=== PATIENT | male | born 1955 | race Caucasian/White ===

== ENCOUNTER 2025-05-30 17:35 | Inpatient (IN) | payer MEDICARE, SELFPAY ==
[2025-05-30] VITALS (8 sets, daily range): BP systolic 115–155; BP diastolic 68–88; BMI 26.1
--- NOTE | 2025-05-30 08:45 | ED.GENMED ---
History of Present Illness
<Fiorella Blancas PA-C - Last Filed: 06/01/25 06:31>
General
Chief Complaint: Abdominal Symptoms
Source: patient
Exam Limitations: none
Time Seen by Provider: 05/30/25 08:06
Nursing documentation reviewed up to this point in time: agreed with
History of Present Illness
History of Present Illness:
see MDM
Phy Exam
<Fiorella Blancas PA-C - Last Filed: 06/01/25 06:31>
Physical Exam
Physical Exam:
ee MDM
Course
<Fiorella Blancas PA-C - Last Filed: 06/01/25 06:31>
Orders/Labs/Results
Orders:
Orders
05/30/25 08:44
0.9% Sodium Chloride 1000 ml [Nss] 1,000 ml IV BOLUS
Ketorolac [Toradol] 30 mg IV NOW STA
US Abdomen Complete/Upper Urgent
Comment:
Reason For Exam: upper abd pain
05/30/25 08:51
Complete Blood Count/With Diff Urgent
Comprehensive Metabolic Panel Urgent
Lipase Urgent
05/30/25 11:52
CT Abd/Pel (IV only)-DH only Urgent
Comment:
Reason For Exam: upper abd pain, bloating
05/30/25 11:55
HYDROmorphone [Dilaudid] 0.5 mg IV NOW STA
05/30/25 Dinner
NPO
Allow oral meds: Yes
Allow clear liquids: No
NPO with Ice Chips: Yes
05/30/25 15:31
0.9% Sodium Chloride 1000 ml [Nss] 1,000 ml IV BOLUS
05/30/25 15:36
Lactic Acid Urgent
05/30/25 16:23
Gastrointestinal Tubes As Directed
Type: [place] sumspike
To suction?: Yes
Type of suction: Low intermittent
Directions to clamp NG tube: clamp for ambulation/activity
Irrigate tube?: Yes
Irrigant: Tap Water
Frequency: Q4H
Amount in mls: 30
Irrigation Directions: Irrigate Q4H and PRN
Comment: 16fr radharosalba mayela
05/30/25 16:36
Admit Patient As Directed
Co-Sign Provider:
Level of Care: Inpatient admission
Assign to:: Medical/Surgical
Physician / Group: General surgery/pellini
Diagnosis: SBO
Reason for Hospitalization: SBO
Expected length of stay greater than two midnights?: Yes
ELOS- Estimated Length of Stay in days: 3
I certify the patient meets the requirements for IP care: Yes
Code Status As Directed
Resuscitation Status: Full Code
HYDROmorphone [Dilaudid] 0.5 mg IV Q3HPRN PRN
HYDROmorphone [Dilaudid] 1 mg IV Q3HPRN PRN
Ketorolac [Toradol] 10 mg IV Q6HPRN PRN
Ondansetron Injectable [Zofran] 4 mg IV Q6HPRN PRN
Activity As Directed
Activity Level: Out of Bed-Early Mobility
Intake/ Output As Directed
Frequency: Per unit guidelines
Vital Signs As Directed
Frequency: Per unit guidelines
PRN Pain Medication Management As Directed
May give lesser potent ordered pain med per pt: Yes
preference::
Protocol:: Medication orders for pain may be administered in a
manner that supports deferring to patient preference
when the pt is:
- Requesting an ordered lesser potent pain medication.
Least to most potent pain medications are defined
as: acetaminophen < NSAID < tramadol < opioids
(morphine, oxycodone, hydromorphone).
- Requesting a lesser dose of the same medication IF
ORDERED.
- Requesting a less intrusive route of administration
if both routes are prescribed by the provider (PO <
IV).
05/30/25 16:37
Pneumatic Compression Sleeves As Directed
Type: Knee high
DX Deep Vein Thrombosis Video Routine
05/30/25 16:39
Phenol 1.4% Gaston [Chloraseptic/Sore Throat Gaston] See Dose Instructions PO Q2HPRN PRN
05/30/25 16:42
CR Chest Portable - 1 View Urgent
Comment:
Reason For Exam: ngt
Reason Study Needs to be Portable: Unable to Transport
05/30/25 16:45
Acetaminophen 1000MG/100Ml [Ofirmev] 1,000 mg in 100 ml IV Q6H
Acetaminophen IV Indication:: Ileus/Delayed Bowel Func.
05/30/25 17:00
Dextrose 5%/0.45%Sodchl 1000ML [D5/0.45%NaCl] 1,000 ml IV 120 mls/hr
05/30/25 18:00
Enoxaparin Sodium [Lovenox] 40 mg SC QPM
05/31/25 05:59
Basic Metabolic Panel IN AM
Complete Blood Count/No Diff IN AM
Abnormal Lab Results
05/30/25
08:51
Absolute Neuts (auto) 7.2 H 10^3/uL
(1.4-6.5)
Absolute Lymphs (auto) 0.9 L 10^3/uL
(1.2-3.4)
Neutrophils % 81.6 H %
(42.2-75.2)
Lymphocytes % 10.5 L %
(20.5-51.1)
BUN 30 H mg/dl
(9-20)
Glucose 111 H mg/dl
(70-99)
Calcium 10.6 H mg/dl
(8.4-10.2)
05/30/25 08:51
05/30/25 08:51
Vital Signs
Initial and Last Documented VS:
Initial Vital Signs
Temp Pulse Resp BP Pulse Ox
98.6 F 64 17 148/83 97
05/30/25 07:38 05/30/25 07:38 05/30/25 07:38 05/30/25 07:38 05/30/25 07:38
Last Documented Vital Signs
Temp Pulse Resp BP Pulse Ox
98 F 60 16 154/92 97
06/02/25 07:58 06/02/25 07:58 06/02/25 07:58 06/02/25 07:58 06/02/25 07:58
<Toni Rosado, - Last Filed: 06/03/25 01:37>
Orders/Labs/Results
Orders:
Orders
05/30/25 08:44
0.9% Sodium Chloride 1000 ml [Nss] 1,000 ml IV BOLUS
Ketorolac [Toradol] 30 mg IV NOW STA
US Abdomen Complete/Upper Urgent
Comment:
Reason For Exam: upper abd pain
05/30/25 08:51
Complete Blood Count/With Diff Urgent
Comprehensive Metabolic Panel Urgent
Lipase Urgent
05/30/25 11:52
CT Abd/Pel (IV only)-[facility] only Urgent
Comment:
Reason For Exam: upper abd pain, bloating
05/30/25 11:55
HYDROmorphone [Dilaudid] 0.5 mg IV NOW STA
05/30/25 Dinner
NPO
Allow oral meds: Yes
Allow clear liquids: No
NPO with Ice Chips: Yes
05/30/25 15:31
0.9% Sodium Chloride 1000 ml [Nss] 1,000 ml IV BOLUS
05/30/25 15:36
Lactic Acid Urgent
05/30/25 16:23
Gastrointestinal Tubes As Directed
Type: Kevin pedro
To suction?: Yes
Type of suction: Low intermittent
Directions to clamp NG tube: clamp for ambulation/activity
Irrigate tube?: Yes
Irrigant: Tap Water
Frequency: Q4H
Amount in mls: 30
Irrigation Directions: Irrigate Q4H and PRN
Comment: 16fr kevin pedro
05/30/25 16:36
Admit Patient As Directed
Co-Sign Provider:
Level of Care: Inpatient admission
Assign to:: Medical/Surgical
Physician / Group: General surgery/pellini
Diagnosis: SBO
Reason for Hospitalization: SBO
Expected length of stay greater than two midnights?: Yes
ELOS- Estimated Length of Stay in days: 3
I certify the patient meets the requirements for IP care: Yes
Code Status As Directed
Resuscitation Status: Full Code
HYDROmorphone [Dilaudid] 0.5 mg IV Q3HPRN PRN
HYDROmorphone [Dilaudid] 1 mg IV Q3HPRN PRN
Ketorolac [Toradol] 10 mg IV Q6HPRN PRN
Ondansetron Injectable [Zofran] 4 mg IV Q6HPRN PRN
Activity As Directed
Activity Level: Out of Bed-Early Mobility
Intake/ Output As Directed
Frequency: Per unit guidelines
Vital Signs As Directed
Frequency: Per unit guidelines
PRN Pain Medication Management As Directed
May give lesser potent ordered pain med per pt: Yes
preference::
Protocol:: Medication orders for pain may be administered in a
manner that supports deferring to patient preference
when the pt is:
- Requesting an ordered lesser potent pain medication.
Least to most potent pain medications are defined
as: acetaminophen < NSAID < tramadol < opioids
(morphine, oxycodone, hydromorphone).
- Requesting a lesser dose of the same medication IF
ORDERED.
- Requesting a less intrusive route of administration
if both routes are prescribed by the provider (PO <
IV).
05/30/25 16:37
Pneumatic Compression Sleeves As Directed
Type: Knee high
DX Deep Vein Thrombosis Video Routine
05/30/25 16:39
Phenol 1.4% Gaston [Chloraseptic/Sore Throat Gaston] See Dose Instructions PO Q2HPRN PRN
05/30/25 16:42
CR Chest Portable - 1 View Urgent
Comment:
Reason For Exam: ngt
Reason Study Needs to be Portable: Unable to Transport
05/30/25 16:45
Acetaminophen 1000MG/100Ml [Ofirmev] 1,000 mg in 100 ml IV Q6H
Acetaminophen IV Indication:: Ileus/Delayed Bowel Func.
05/30/25 17:00
Dextrose 5%/0.45%Sodchl 1000ML [D5/0.45%NaCl] 1,000 ml IV 120 mls/hr
05/30/25 18:00
Enoxaparin Sodium [Lovenox] 40 mg SC QPM
05/31/25 05:59
Basic Metabolic Panel IN AM
Complete Blood Count/No Diff IN AM
Abnormal Lab Results
05/30/25
08:51
Absolute Neuts (auto) 7.2 H 10^3/uL
(1.4-6.5)
Absolute Lymphs (auto) 0.9 L 10^3/uL
(1.2-3.4)
Neutrophils % 81.6 H %
(42.2-75.2)
Lymphocytes % 10.5 L %
(20.5-51.1)
BUN 30 H mg/dl
(9-20)
Glucose 111 H mg/dl
(70-99)
Calcium 10.6 H mg/dl
(8.4-10.2)
05/30/25 08:51
05/30/25 08:51
Vital Signs
Initial and Last Documented VS:
Initial Vital Signs
Temp Pulse Resp BP Pulse Ox
98.6 F 64 17 148/83 97
05/30/25 07:38 05/30/25 07:38 05/30/25 07:38 05/30/25 07:38 05/30/25 07:38
Last Documented Vital Signs
Temp Pulse Resp BP Pulse Ox
98 F 60 16 154/92 97
06/02/25 07:58 06/02/25 07:58 06/02/25 07:58 06/02/25 07:58 06/02/25 07:58
<Fiorella Blancas PA-C - Last Filed: 06/01/25 06:31>
MDM/Problems Addressed
Differential Diagnosis Includes:
see MDM
MDM/Problems Addressed:
Note:
CHIEF COMPLAINT(S)
Abdominal pain.
HISTORY OF PRESENT ILLNESS
The patient is a 69-year-old male who presented with abdominal pain located in the middle of the abdomen. The pain commenced at approximately 1:00 AM, waking the patient from sleep. It is described as occurring in waves, with baseline discomfort at
a level 6 on a pain scale and increasing to an 8 during the waves. The patient notes that the pain has been persistent and appears to be worsening. He reports that positioning affects the pain, mentioning that lying on his side seems to exacerbate
it. His last bowel movement was on morning and he denies any signs of constipation. The patient has a history of occasional acid reflux managed with qpbj-orn-zfinxwi antacids but has not undergone an endoscopy. Dinner consisted of a diverse
selection of foods including sushi, crab quads, and beef. He reports no significant nausea, vomiting, or fever, although he does experience occasional burping and marginal nausea. The patient denies any prior episodes of similar pain, reports no
alcohol consumption, and when taking a deep breath, experiences discomfort.
PAST MEDICAL HISTORY
History of acid reflux, managed with [id number]-acnxkgu antacids.
PHYSICAL EXAM
GENERAL: Alert , in no apparent distress
EYE: pupils equal and reactive
NECK: Supple
ENT: o/p clr, mmm.
CARDIAC: Regular rate and rhythm .
LUNGS: Clear breath sounds bilaterally, no acute respiratory distress, no wheezes/rales/rhonchi
ABDOMEN: Soft, mildly distended especially the upper abdomen with right upper quadrant tenderness, negative Santana sign, no r/g, no cvat, normal bowel sounds
NEUROLOGICAL: Alert and oriented, no focal neuro deficits
SKIN: Warm and dry, skin intact.
MUSCULOSKELETAL: No edema, well perfused.
PSYCH: Normal and appropriate interaction.
- Nursing notes reviewed and vital signs reviewed.
PLAN
- Administer Ketorolac as an anti-inflammatory for pain management. If ineffective, consider escalation to morphine.
- Order blood work to assess liver markers.
- Schedule an abdominal ultrasound to evaluate gallbladder, liver, kidney, aorta, and pancreas, focusing on possible gallbladder issues including gallstones.
- Consider a computed tomography scan if ultrasound results are inconclusive.
- Initiate intravenous hydration.
- Advise the patient to refrain from eating or drinking until further assessment is complete.
DIFFERENTIAL DIAGNOSIS
The Differential Diagnosis includes, in no particular order and is not limited to:
1. Biliary colic
2. Cholecystitis
3. Pancreatitis
4. Gastritis
5. Peptic ulcer disease
6. Small bowel obstruction
7. Large bowel obstruction
8. Enteritis
9. Hepatitis
10. Gastroesophageal reflux disease (GERD)
CARE-UPDATE
05/30/25 - 13:56
Upper abdominal pain waxing and waning since 1 AM, woke patient from sleep, mild abdominal distention without vomiting but some mild nausea. No previous abdominal surgeries. Patient seemed to have tenderness in his right upper quadrant with a
negative Santana sign but given the location I started with an ultrasound. The screening labs were unremarkable. Patient's ultrasound was negative and I proceeded to order a CT scan
Patient experienced delays in scheduling due to an influx of other cases, including priority strokes, which impacted the timing of their study. Efforts are being made to expedite the process. Patient informed that the scan itself is short,
approximately 3-5 minutes, with results typically reviewed by a radiologist within the hour.
CT showed high-grade small bowel obstruction, patient has a normal lactic acid. His pain was controlled with IV pain medication. He was given IV fluids and I consulted general surgery who recommended NG tube. I did see that the tube was not fully
in and had them advance it 2 cm after x-ray which did successfully show that the patient's tube was in place given the output in the NG tube canister. Patient will be admitted to the hospitalist
<Fiorella Blancas PA-C - Last Filed: 06/01/25 06:31>
*Pulse Oximetry
SaO2: 97
Oxygen Mode of Delivery: Room air
Patient hypoxic: no (96)
*Critical Care Note
Total Time (30-74mins, 75-104mins- exclusive of procedures): Not Applicable
ED Attending Note
<Fiorella Blancas PA-C - Last Filed: 06/01/25 06:31>
-
Portions of this chart may have been created with voice recognition software.� Occasional wrong word or��sound alike� substitutions may have occurred due to the inherent limitations of voice recognition software.
<Toni Rosado DO - Last Filed: 06/03/25 01:37>
ED Attending Note
Patient seen and examined by attending physician: Yes
I performed the substantive portion of visit, reviewed & personally made and approve the management plan that is documented in note by myself or BRITTANY.: Yes
ED Attending Note:
Documentation delayed. 61-year-old male presents with abdominal distention and discomfort. Found to have small bowel obstruction. Surgery consult. Admit
Discharge Plan
Departure
Patient Disposition: Admit
Date of Disposition: 05/30/25
Time of Disposition: 15:41
Admit to: Med/Surg
Presentation/result/management discussed w/ accepting MD/DO: Hospitalist
Condition: Fair
Covid-19: Negative COVID-19
Discharge Problem:
SBO (small bowel obstruction)
Interventions
Interventions:
*Risk Screen - Suicide Last Done: 05/30/25 07:40
*General Assessment Last Done: 05/30/25 07:40
*Neglect/Abuse Screening Last Done: 05/30/25 07:40
*ED- Fall Risk Assessment Last Done: 05/30/25 08:18
*ED COVID-19 Vaccine History Last Done: 05/30/25 07:40
*Nursing Disposition Last Done: 05/30/25 19:15
FM-Gedjmp-Yiqrgacsvl Assessment Last Done: 05/30/25 08:18
Discharge Date and Time
Discharge Date/Time: 05/30/25 19:15
[2025-05-30] MEDS: NSS 1000 IV ×2 (08:52→15:35)
[2025-05-30] MEDS: TORADOL 30 MG IV (08:52)
[2025-05-30 09:01] LABS: Hematocrit 44.2 % (39.0-52.0); Hemoglobin 15.1 g/dL (13.0-18.0); Mean Corp Hgb Conc. 34.2 g/dL (33.0-37.0); Mean Corpuscular Volume 83.2 fL (80.0-94.0); Nucleated Red Blood Cells % 0 % (-); Platelet Count 172 10^3/uL (130-400); Red Cell Dist. Width 13.0 % (11.5-14.5)
[2025-05-30 09:38] LABS: ALT (SGPT) 33 U/L (0-50); AST (SGOT) 39 U/L (17-59); Albumin 4.5 g/dl (3.5-5.0); Alkaline Phosphatase 43 U/L (38-126); Blood Urea Nitrogen 30 mg/dl (9-20); Calcium 10.6 mg/dl (8.4-10.2); Carbon Dioxide 28 mmol/L (22-30); Chloride 107 mmol/L (98-107); Estimated Creatinine Clearance 79 ml/min; Glucose 111 mg/dl (70-99); Lipase 46 U/L (23-300); Potassium 4.7 mmol/L (3.5-5.1); Sodium 140 mmol/L (135-145); Total Protein 7.0 g/dl (6.3-8.2); eGFR > 60.00
[2025-05-30] MEDS: DILAUDID 0.5 MG IV (11:58)
--- NOTE | 2025-05-30 16:23 | HPS.HSE ---
Family Physician
-
Family Physician: Tutu Peterson
Chief Complaint
-
Abdominal pain
History of Present Illness
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 As the day has progressed, his pain has worsened with cramping and nausea. He
denies vomiting. He has not passed flatus since yesterday and notes that he has been burping. 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
excessive amount. He went to bed as usual and was awakened with sleep early this morning. On exam, his abdomen is tensely distended with mild generalized tenderness. No rebound, rigidity or guarding. He denies prior bowel obstructions in the past.
Medical History
Past Medical History
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
Past Surgical History: Reports Orthopedic (left meniscus) and Urological (right orchiectomy)
Social History
Tobacco: Non-smoker
Alcohol: Occasional
Personal:
Living: With Family
Family History
Family History: Not pertinent
Allergies / Home Medications
Allergies reflects when Allergies were last updated in [facility].
Home Medications with original date entered in [facility] [employer]
Allergy/Medication List:
Patient Allergies
Allergy/AdvReac Type Severity Reaction Status Date / Time
No Known Allergies Allergy Unverified 05/30/25 07:39
Review of Systems
-
History Source: Patient and Family
A 12 point ROS was completed and negative except as noted: Yes
Physical Exam
Vital Signs
Vital Signs
Temp Pulse Resp BP Pulse Ox
98.6 F 55 16 140/79 98
05/30/25 07:38 05/30/25 16:02 05/30/25 16:02 05/30/25 16:00 05/30/25 16:00
Physical Exam
General: Well Developed and Well Nourished
HEENT: Moist mucous membranes
Respiratory: Non Labored Respirations
GI: Soft, Tender (mild and generalized without rebound, rigidity or guarding) and Distended (tensely)
Skin: Warm and Dry
Neuro: Awake, Alert and AO x 3
Psych: Calm
Laboratory Results
-
05/30/25 08:51
05/30/25 08:51
Laboratory Results
Lactic Acid 0.8 mmol/L (0.7-2.0) 05/30/25 15:36
Total Bilirubin 1.0 mg/dl (0.2-1.3) 05/30/25 08:51
AST 39 U/L (17-59) 05/30/25 08:51
ALT 33 U/L (0-50) 05/30/25 08:51
Alkaline Phosphatase 43 U/L (38-126) 05/30/25 08:51
Lipase 46 U/L (23-300) 05/30/25 08:51
Data Reviewed
-
CT Scan: Image Personally Visualized and interpreted, Report Reviewed by me, Discussed with Physician, Discussed with Patient and Discussed with Family
Lab Data: Labs Reviewed by me, Discussed with Physician and Discussed with Patient
Impression/Plan
-
IMPRESSION: 69 yo male with a h/o right orchiectomy and xrt for testicular cancer presenting with acute onset of abdominal pain with nausea around [address] imaging w/iv and w/o oral contrast with small bowel and gastric distention
concerning for high grade SBO with transition point in the right lower quadrant, suspect secondary adhesions from prior surgery/lymph node dissection. Distended and nauseated but without peritoneal signs. No evidence of bowel threat/compromise on CT
imaging. Afebrile. VSS. No leukocytosis.
PLAN:
Admit to GS team
Place NGT for decompression
NPO except ice chips for comfort
Analgesics/antiemetics prn
May need PO contrast study if no improvement
SQ lovenox and scds for vte ppx
No surgery planned today. Will follow with nonoperative/supportive measures for improvement at this point
[2025-05-30] MEDS: OFIRMEV 100 IV ×2 (17:35→22:14)
[2025-05-30] MEDS: D5/0.45%NACL 1000 IV (17:44)
[2025-05-30] MEDS: LOVENOX 40 MG SC (18:25)
--- NOTE | 2025-05-30 19:30 | PTCARENOTE ---
Pt arrived to floor on stretcher from ED, at bedside; Ambulated to bed with steady gait; L [place] sump NG tube intact and connected to low-int wall suction - draining brown gastric fluid. Pt reports 5/10 pain, refusing additional pain
meds at this time; Reports mild nausea - IV zofran administered; Oriented to room, call kuo within reach. Will continue to monitor and assess.
[2025-05-30] MEDS: ZOFRAN 4 MG IV (19:54)
[2025-05-31] MEDS: D5/0.45%NACL 1000 IV ×3 (02:04→17:43)
[2025-05-31] MEDS: ZOFRAN 4 MG IV (02:09)
[2025-05-31] MEDS: OFIRMEV 100 IV ×4 (03:54→22:27)
[2025-05-31 06:29] LABS: Hematocrit 42.0 % (39.0-52.0); Hemoglobin 14.3 g/dL (13.0-18.0); Mean Corp Hgb Conc. 34.0 g/dL (33.0-37.0); Mean Corpuscular Volume 85.0 fL (80.0-94.0); Platelet Count 150 10^3/uL (130-400); Red Cell Dist. Width 13.0 % (11.5-14.5)
[2025-05-31 06:46] LABS: Blood Urea Nitrogen 24 mg/dl (9-20); Calcium 8.7 mg/dl (8.4-10.2); Carbon Dioxide 28 mmol/L (22-30); Chloride 106 mmol/L (98-107); Estimated Creatinine Clearance 79 ml/min; Glucose 124 mg/dl (70-99); Potassium 4.0 mmol/L (3.5-5.1); Sodium 137 mmol/L (135-145); eGFR > 60.00
[2025-05-31 07:55] VITALS: BP 127/70
--- NOTE | 2025-05-31 08:30 | PTCARENOTE ---
ng tube clamped at 0830. restarted at 1130. will text results @1300 to surgeon per md's instructions
[2025-05-31] MEDS: TORADOL 10 MG IV (08:39)
--- NOTE | 2025-05-31 10:13 | CM ---
Reviewed the chart notes and spoke with the patient and spouse at the bedside. Patient with NGT that is in process of a trial clamp. The patient resides with his spouse in a two story home with two steps to enter. The patient reports no
DME/VN/SNF in the past. Patient confirmed his pharmacy of choice is [facility]. CM continues to be available to patient/family and is monitoring medical plan for needs at discharge.
Plan: Discharge plans will depend on the patient's progress.
--- NOTE | 2025-05-31 10:26 | W.PN.GS2 ---
Addendum entered and electronically signed by Romeo Vance MD 05/31/25 11:22:
I saw and examined the patient independently.
The resident's documentation was reviewed and I agree with the note, assessment and plan except where noted below.
Comment: 69-year-old male with SBO.
NG tube clamp trial
Original Note:
Today's Communication / Plan
-
Trial NG tube clamp this morning
Continue antiemetics/pain medication as needed
Assessment / Plan
-
Assessment
Patient is a 69-year-old male presenting with acute abdominal pain, imaging indicative of an SBO.
NG tube in place
NPO
Plan
Given that patient had a bowel movement and pain is improved, we we will trial NG tube clamp this morning
Continue antiemetics/pain medication as needed
Subjective Data
-
Date of Service: May 31, 2025
Patient is a 69-year-old male with PMH of testicular cancer (right) s/p orchiectomy and radiation who presented with acute abdominal pain yesterday. On CT abdomen pelvis patient seen to have distended loops of small bowel with a transition point in
the RLQ consistent with SBO. NG tube was placed yesterday. This morning NG tube has drained about 150 mL of dark brown liquid. This morning patient was seen with Dr. Vance, sitting up in the chair with his NG tube clamped. Patient rates his
abdominal pain a 3 out of 10, and says it is much improved. Patient denies any nausea and vomiting. Overnight patient had a large volume, mostly fluid bowel movement.
Objective Data
-
Intake and Output
05/30/25 05/31/25 06/01/25
06:59 06:59 06:59
Intake Total 1440 / 1440
Output Total 1700 / 1700
Balance -260 / -260
Intake:
IV fluids (Total) 1440 / 1440
Output:
Gastrointestinal tube output ( 1700 / 1700
Total)
[place] Sump 800 / 800
Other:
How many times incontinent 1
MODERATE amount urine
Vital Signs
Temp Pulse Resp BP Pulse Ox
99 F 75 16 127/70 97
05/31/25 07:55 05/31/25 07:55 05/31/25 07:55 05/31/25 07:55 05/31/25 07:55
Lab Results
05/31/25 05:59
05/31/25 05:59
Calcium 8.7 mg/dl (8.4-10.2) D 05/31/25 05:59
Total Bilirubin 1.0 mg/dl (0.2-1.3) 05/30/25 08:51
AST 39 U/L (17-59) 05/30/25 08:51
ALT 33 U/L (0-50) 05/30/25 08:51
Alkaline Phosphatase 43 U/L (38-126) 05/30/25 08:51
Total Protein 7.0 g/dl (6.3-8.2) 05/30/25 08:51
Albumin 4.5 g/dl (3.5-5.0) 05/30/25 08:51
Physical Exam
-
General: Not in any acute distress
Abdomen: Soft, nontender, mildly distended
Neuro: AAOX3
Patient has a tyson catheter: No
Patient has a central line: No
--- NOTE | 2025-05-31 13:19 | PTCARENOTE ---
ng tube removed per surgeon request
[2025-05-31 15:45] VITALS: BP 121/73
[2025-05-31] MEDS: LOVENOX 40 MG SC (17:23)
[2025-05-31 19:30] LABS: Hepatitis C Antibody Negative (Negative)
[2025-05-31 23:39] VITALS: BP 108/62
[2025-06-01] MEDS: D5/0.45%NACL 1000 IV (02:48)
[2025-06-01] MEDS: OFIRMEV 100 IV ×2 (03:48→11:17)
[2025-06-01 08:00] VITALS: BP 120/72
--- NOTE | 2025-06-01 08:29 | W.PN.GS2 ---
Today's Communication / Plan
-
-- LRD
Assessment / Plan
-
Patient is a 69 yo M p/w SBO likely secondary to adhesions secondary to XRT
Clinical improvement over the past 24 hours with passage of flatus and stools. Plan for trial of dietary advancement throughout the day with potential discharge either today versus tomorrow.
Of note, no prior episodes of a bowel obstruction. No clear history of dietary indiscretion. Dietary education was provided.
Plan
-- LRD
-- Dispo pending tolerance of above
Subjective Data
-
Date of Service: June 01, 2025
Tolerating clears. No nausea or vomiting. Reports passing flatus and multiple loose stools. Feels improved and eager to trial solid foods. Afebrile. Ambulating.
Objective Data
-
Intake and Output
05/31/25 06/01/25 06/02/25
06:59 06:59 06:59
Intake Total 1440 / 1440 3440 / 3440
Output Total 1700 / 1700
Balance -260 / -260 3440 / 3440
Intake:
Oral fluids 420 / 420
IV fluids (Total) 1440 / 1440 2820 / 2820
IV piggybacks 200 / 200
Output:
Gastrointestinal tube output ( 1700 / 1700
Total)
[place] Sump 800 / 800
Other:
How many times incontinent 1
MODERATE amount urine
Number of approximated MODERATE 3
amounts of urine
Number of unmeasured liquid
stools
Rectum 3
Vital Signs
Temp Pulse Resp BP Pulse Ox
98.7 F 59 16 108/62 96
05/31/25 23:39 05/31/25 23:39 05/31/25 23:39 05/31/25 23:39 05/31/25 23:39
Lab Results
05/31/25 05:59
05/31/25 05:59
Calcium 8.7 mg/dl (8.4-10.2) D 05/31/25 05:59
Total Bilirubin 1.0 mg/dl (0.2-1.3) 05/30/25 08:51
AST 39 U/L (17-59) 05/30/25 08:51
ALT 33 U/L (0-50) 05/30/25 08:51
Alkaline Phosphatase 43 U/L (38-126) 05/30/25 08:51
Total Protein 7.0 g/dl (6.3-8.2) 05/30/25 08:51
Albumin 4.5 g/dl (3.5-5.0) 05/30/25 08:51
Physical Exam
-
Gen: NAD
Abd: soft, mild RLQ tenderness, ND, non-peritoneal, prior RIGHT groin incision well healed
Patient has a tyson catheter: No
Patient has a central line: No
--- NOTE | 2025-06-01 11:43 | CM ---
Reviewed the chart notes and spoke with the patient and spouse at the bedside. IMM reviewed. Patient upgraded to low residue diet today. CM continues to be available to patient/family and is monitoring medical plan for needs at discharge.
Plan: Discharge to home when medically stable. No needs anticipated at this time.
[2025-06-01 15:30] VITALS: BP 127/75
[2025-06-01] MEDS: LOVENOX SC (17:27)
[2025-06-01] MEDS: D5/0.45%NACL IV ×2 (19:33→19:40)
[2025-06-01 23:21] VITALS: BP 133/71
--- NOTE | 2025-06-02 02:29 | DOWNTIME ---
There was a [employer] Client Welfare Eligibility Interviewer Downtime on 06/02/2025 from 0100 to 06/02/2025 at 0215. Downtime documentation of patient's care, including medication administrations, has been reconciled in the electronic record per guidelines. Refer to the
patient's paper chart under the miscellaneous tab to see printed paper medication records and downtime forms.
[2025-06-02 07:58] VITALS: BP 154/92
--- NOTE | 2025-06-02 10:35 | W.PN.GS2 ---
Addendum entered and electronically signed by Tobi Morgan MD 06/02/25 10:50:
I was physically present and personally performed the harden portions of the surgical evaluation and/or procedure with the resident. I discussed the findings, reviewed the resident�s note, and confirmed the medical decision-making. I provided direct
supervision as required and agree with the assessment and plan as documented with the following additions/corrections:
Tolerated dinner last night, no issues overnight, mildly distended and nt on exam. OK for DC home after breakfast
Original Note:
Today's Communication / Plan
-
Continue low residue diet
Plan for discharge today pending tolerance of breakfast
Assessment / Plan
-
Patient is a 69 yo M p/w SBO likely secondary to adhesions secondary to XRT
Given continued clinical improvement now on low residue diet, passage of normal stool this morning, patient ready for discharge today.
Plan
Continue LRD
Pending tolerance of breakfast, discharge home today
Subjective Data
-
Date of Service: June 02, 2025
Patient is a 69-year-old male [facility] testicular cancer s/p external beam radiation 30+ years ago, presented to [facility] with abdominal pain found to have an SBO. Patient seen at the bedside today with Dr. Morgan. Patient had his first meal on low residue
diet last night, it was grilled chicken. Patient experienced some mild bloating after dinner, which dissipated with walking around. Patient plans to eat breakfast this morning. Patient had a normal consistency bowel movement this morning.
Patient denies abdominal pain, but notes some mild distention/bloating. Patient feels well and would like to go home.
Objective Data
-
Intake and Output
06/01/25 06/02/25 06/03/25
06:59 06:59 06:59
Intake Total 3440 / 3440 600 / 600
Balance 3440 / 3440 600 / 600
Intake:
Oral fluids 420 / 420 600 / 600
IV fluids (Total) 2820 / 2820
IV piggybacks 200 / 200
Other:
Number of approximated MODERATE 3
amounts of urine
Number of unmeasured liquid
stools
Rectum 3
Vital Signs
Temp Pulse Resp BP Pulse Ox
98 F 60 16 154/92 97
06/02/25 07:58 06/02/25 07:58 06/02/25 07:58 06/02/25 07:58 06/02/25 07:58
Lab Results
05/31/25 05:59
05/31/25 05:59
Calcium 8.7 mg/dl (8.4-10.2) D 05/31/25 05:59
Total Bilirubin 1.0 mg/dl (0.2-1.3) 05/30/25 08:51
AST 39 U/L (17-59) 05/30/25 08:51
ALT 33 U/L (0-50) 05/30/25 08:51
Alkaline Phosphatase 43 U/L (38-126) 05/30/25 08:51
Total Protein 7.0 g/dl (6.3-8.2) 05/30/25 08:51
Albumin 4.5 g/dl (3.5-5.0) 05/30/25 08:51
Physical Exam
-
General: Not in acute distress
Abdomen: Soft nontender, mild distention
Neuro: AAO X3
Patient has a tyson catheter: No
Patient has a central line: No
--- NOTE | 2025-06-02 10:52 | CM ---
Reviewed the chart notes. Patient for discharge to home today. Spouse will provide transportation. No needs.
--- NOTE | 2025-06-02 11:18 | W.DCSUMMARY ---
Discharge Summary
Discharge Data
Date of Admission: 05/30/25
Date of Discharge: 06/02/25
-
Pending Results: No
Hospital Course
Discharging Physician :
Tobi Morgan MD
Disposition :
Home
Primary care physician :
Tutu Peterson
Principal Discharge diagnosis :
Small bowel obstruction
Chronic Discharge diagnosis :
NA
Hospital Course :
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 Patient's pain was worsening and associated with nausea but no
vomiting. Patient has never had a prior bowel obstruction before. On exam in the ED, patient's abdomen was tensely distended with mild generalized tenderness. CT AP with IV contrast indicated small bowel and gastric distention concerning for
high-grade SBO with a transition point in the right lower quadrant, suspect secondary adhesions from prior surgery and lymph node dissection. At this time patient was afebrile, vital signs stable, no leukocytosis. Patient was admitted to the
general surgery team, nasogastric tube was placed for decompression, the patient was kept NPO. Patient was given analgesics and antiemetics as needed. By the next morning, patient's pain had significantly decreased and patient had loose bowel
movements. Given his clinical improvement we decided to trial clamp the NG tube. The clamp trial was successful, NG tube removed and patient diet was advanced. Patient continued to have clinical improvement with passage of flatus and stools and
was advanced the diet to low residue diet. Patient had some minor bloating associated with his first LRD meal, which subsided after ambulating. Patient tolerated breakfast the next morning without any issue. Patient continued to have bowel
movements. Patient expressed feeling ready to go home, we agreed that patient was ready for discharge.
Important imaging findings :
05/30/2025 abdominal ultrasound -Sherrill Sexton DO
IMPRESSION: Simple hepatic cyst. Simple left renal cyst. Nonvisualization of pancreas and proximal abdominal aorta.
05/30/2025 CT abdomen/pelvis with IV contrast -Dr. Jose Dickerson MD
IMPRESSION:
The stomach and numerous loops of small bowel are distended with transition point in the right lower quadrant consistent with small bowel obstruction. Given the associated mesenteric edema most likely represents a high-grade small bowel obstruction.
There is mild wall thickening of the bowel loop proximal to the transition point for which ischemia is possible. Recommend correlation with lactate values.
Colonic diverticulosis.
Procedure findings :
NA
Discharge Plan
-
Patient Disposition: Home (Routine Discharge)
Discharge Diagnosis/Procedures: SBO
Diet: Low Residue
Activity: No strenuous activity
Additional Activity: Gradually return to normal activity as tolerated
Bathing Restrictions: None
Referrals:
Tutu Peterson MD [Family Provider, [facility]]
Prescriptions:
No Action
No Current Medications
0
Discharge Orders:
Discharge Patient (As Directed); Ordered 06/02/25
Ordered By: Tobi Morgan
Discharge Date and Time
Discharge Date/Time: 06/02/25 11:16
Print Language: URDU
== END 2025-06-02 11:16 | disposition home or self-care (01) | DRG 390 ==
LOC: 2 SOUTH 17:35
PROVIDERS: Physician Assistant; Registered Nurse; Surgery; ADMITTING PHYSICIAN Surgery; EMERGENCY PHYSICIAN Emergency Medicine; FAMILY PHYSICIAN Family Medicine
PROC: 0D9670Z Drainage of Stomach with Drainage Device, Via Natural or Artificial Opening (ICD-10-PCS; 2025-05-30)
DX: K56.50 Intestinal adhesions [bands], unspecified as to partial versus complete obstruction (principal); Z85.47 Personal history of malignant neoplasm of testis; Z92.3 Personal history of irradiation; Z92.21 Personal history of antineoplastic chemotherapy
CPT/HCPCS: 71045; 74177; 76700; 80048; 80053; 83605; 83690; 85025; 85027; 86803; 96361; 96374; 96375; 99285; Q9967